=== PATIENT | male | born 1990 ===

== ENCOUNTER 2021-07-29 11:34 | Inpatient (IN) | payer SELFPAY ==
[2021-07-29] MEDS ORDERED: dexAMETHasone 20 MG/5 ML VIAL IV ONE (13:47)
[2021-07-29] MEDS ORDERED: IPRATROPIUM/ALBUTEROL SULFATE 3 ML AMPUL.NEB IH ONE ×2 (13:47→14:14)
--- NOTE | 2021-07-29 14:04 | Emergency Department Report ---
ED Shortness of Breath HPI - General Chief Complaint: Chest Pain Stated Complaint: CHEST PAIN Time Seen by Provider: 07/29/21 13:47 Source: patient Mode of arrival: Ambulatory Limitations: No Limitations - History of Present Illness Initial Comments: 31-year-old male presents to the emergency room complaining of shortness of breath wheezing for the last 4 days. Reports is getting worse. History of asthma. States he has chest pain difficulty breathing and cough. No fever no chills no vaccination for COVID. MD Complaint: shortness of breath, cough, chest pain Onset/Timin -: days(s) Consistency: constant Improves With: nothing Worsens With: coughing Known History Of: asthma Associated Symptoms: chest pain, cough Treatments Prior to Arrival: none - Related Data Allergies Allergy/AdvReac Type Severity Reaction Status Date / Time No Known Allergies Allergy Unverified 07/29/21 11:47 ED Review of Systems ROS: Stated complaint: CHEST PAIN Other details as noted in HPI Comment: All other systems reviewed and negative ED Physical Exam - General Limitations: No Limitations General appearance: alert, in distress - Head Head exam: Present: atraumatic, normocephalic - Eye Eye exam: Present: normal appearance - ENT ENT exam: Present: normal external ear exam - Respiratory Respiratory exam: Present: respiratory distress, wheezes, rhonchi, decreased breath sounds - Cardiovascular Cardiovascular Exam: Present: tachycardia - GI/Abdominal GI/Abdominal exam: Present: soft, normal bowel sounds. Absent: distended, tenderness - Extremities Exam Extremities exam: Present: normal inspection, full ROM - Back Exam Back exam: Present: normal inspection - Neurological Exam Neurological exam: Present: alert, oriented X3, normal gait - Psychiatric Psychiatric exam: Present: normal affect, normal mood - Skin Skin exam: Present: warm, dry, intact, normal color. Absent: rash ED Course Vital Signs 07/29/21 07/29/21 11:47 14:30 Temperature 98.3 F Pulse Rate 102 H Pulse Rate [ 98 H Bilateral Throughout] Respiratory 18 Rate Respiratory 16 Rate [Bilateral Throughout] Blood Pressure 147/93 [Right] O2 Sat by Pulse 98 Oximetry ED Medical Decision Making - Radiology Data Radiology results: report reviewed [facility] [address] [place] [address] XRay Report Signed Patient: LOREN GAINES MR#: [id number] 260 : 1990 Acct:[id number] Age/Sex: 31 / M ADM Date: 07/29/21 Loc: ED Attending Dr: Ordering Physician: ARTHUR SALAZAR Date of Service: 07/29/21 Procedure(s): XR chest 1V ap Accession Number(s): [id number] cc: ARTHUR SALAZAR Fluoro Time In Minutes: CHEST 1 VIEW 07/29/2021 2:09 PM INDICATION / CLINICAL INFORMATION: sob,cough and rales. COMPARISON: None available. FINDINGS: SUPPORT DEVICES: None. HEART / MEDIASTINUM: No significant abnormality. LUNGS / PLEURA: No significant pulmonary or pleural abnormality. No pneumothorax. ADDITIONAL FINDINGS: No significant additional findings. IMPRESSION: 1. No acute findings. Signer Name: Linwood De Paz MD Signed: 07/29/2021 2:29 PM Workstation Name: [id number] Transcribed By: GILMAR Dictated By: Linwood De Paz MD Electronically Authenticated By: Linwood De Paz MD Signed Date/Time: 07/29/211428 DD/ 28 TD/TT: - Medical Decision Making 31-year-old male presents to the emergency room complaining of shortness of breath wheezing for the last 4 days. Reports is getting worse. History of asthma. States he has chest pain difficulty breathing and cough. No fever no chills no vaccination for COVID. Case was discussed with Dr. Winter. Patient had a 5-minute ambulatory pulse ox desatted to 91% on room air heart rate went to 126. Discussed case with Dr. Spear to be admitted. Dr. Spear accepted admission. Please order for CBC CMP and a ABG RA. Patient is to continue with his continuous nebulizer treatment. Chest x-ray was ordered and completed shows no acute cardiopulmonary abnormalities. Critical care attestation.: If time is entered above; I have spent that time in minutes in the direct care of this critically ill patient, excluding procedure time. ED Disposition Clinical Impression: Asthma attack, Status asthmaticus, Hypoxemia Disposition: ADMITTED INPATIENT Is pt being admited?: Yes Does the pt Need Aspirin: No Condition: Stable Instructions: Asthma, Adult, [id number] Referrals: PRIMARY CARE, [Primary Care Provider] - 3-5 Days
[2021-07-29] MEDS ORDERED: ALBUTEROL 2.5 MG/3 ML NEBU IH ONE (14:16)
[2021-07-29] MEDS ORDERED: IPRATROPIUM 0.02% NEBU 2.5 ML IH ONE (14:19)
--- NOTE | 2021-07-29 14:33 | XRay Report ---
CHEST 1 VIEW 07/29/2021 2:09 PM INDICATION / CLINICAL INFORMATION: sob,cough and rales. COMPARISON: None available. FINDINGS: SUPPORT DEVICES: None. HEART / MEDIASTINUM: No significant abnormality. LUNGS / PLEURA: No significant pulmonary or pleural abnormality. No pneumothorax. ADDITIONAL FINDINGS: No significant additional findings. IMPRESSION: 1. No acute findings. Signer Name: Linwood De Paz MD Signed: 07/29/2021 2:29 PM Workstation Name: rumr: turn off the lights
[2021-07-29 18:28] LABS: Hematocrit 48.2 % (35.5-45.6); Hemoglobin 16.2 gm/dl (11.8-15.2); Mean Corpuscular HGB Conc 34 % (32-34); Mean Corpuscular Volume 87 fl (84-94); Platelet Count 280 K/mm3 (140-440); Red Blood Count 5.52 M/mm3 (3.65-5.03); Red Cell Distribution Width 13.3 % (13.2-15.2)
[2021-07-29 18:40] LABS: Alanine Aminotransferase 23 units/L (7-56); Albumin 4.9 g/dL (3.9-5); BUN/Creatinine Ratio 18; Blood Urea Nitrogen 14 mg/dL (9-20); Calcium 9.7 mg/dL (8.4-10.2); Hemolysis Index 15
--- NOTE | 2021-07-29 20:10 | History and Physical Report ---
History of Present Illness Date of examination: 07/29/21 Date of admission: 07/30/2019. Chief complaint: Severe wheezing and shortness of breath since a.m. History of present illness: 35-year-old male comes to the emergency room because of wheezing and shortness of breath for the last 4 days. Not responding to his inhalers. No fever or chills. Cough productive of mucoid sputum. Not a smoker. Initially sats were around 89-90. Improved with oxygenation and nebulizer treatments. Past History Past Medical History: other (Asthma) Past Surgical History: No surgical history Social history: lives with family, full code Family history: no significant family history Medications and Allergies Allergies Allergy/AdvReac Type Severity Reaction Status Date / Time No Known Allergies Allergy Unverified 07/29/21 11:47 Review of Systems All systems: negative Respiratory: congestion, wheezing Exam - Constitutional Vitals: Temp Pulse Resp BP Pulse Ox 98.3 F 98 H 16 140/87 91 07/29/21 11:47 07/29/21 14:30 07/29/21 14:30 07/29/21 18:31 07/29/21 18:31 General appearance: Present: mild distress, well-nourished - EENT Eyes: Present: PERRL ENT: hearing intact, clear oral mucosa - Neck Neck: Present: supple, normal ROM - Respiratory Respiratory effort: normal Respiratory: bilateral: CTA, rhonchi, wheezing - Cardiovascular Heart rate: 78 Rhythm: regular Heart Sounds: Present: S1 & S2. Absent: rub, click - Extremities Extremities: pulses symmetrical, No edema Peripheral Pulses: within normal limits - Abdominal General gastrointestinal: Present: soft, non-tender, non-distended, normal bowel sounds Male genitourinary: Present: normal - Integumentary Integumentary: Present: clear, warm, dry - Musculoskeletal Musculoskeletal: gait normal, strength equal bilaterally - Psychiatric Psychiatric: appropriate mood/affect, intact judgment & insight - Neurologic Neurologic: CNII-XII intact, moves all extremities Results - Labs CBC & Chem 7: 07/29/21 17:48 07/30/21 03:59 Labs: Laboratory Last Values WBC 11.2 K/mm3 (4.5-11.0) H 07/29/21 17:48 RBC 5.52 M/mm3 (3.65-5.03) H 07/29/21 17:48 Hgb 16.2 gm/dl (11.8-15.2) H 07/29/21 17:48 Hct 48.2 % (35.5-45.6) H 07/29/21 17:48 MCV 87 fl (84-94) 07/29/21 17:48 MCH 29 pg (28-32) 07/29/21 17:48 MCHC 34 % (32-34) 07/29/21 17:48 RDW 13.3 % (13.2-15.2) 07/29/21 17:48 Plt Count 280 K/mm3 (140-440) 07/29/21 17:48 Seg Neutrophils % Track Equipment Operator 07/29/21 17:48 Sodium 136 mmol/L (137-145) L 07/29/21 17:48 Potassium 3.4 mmol/L (3.6-5.0) L 07/29/21 17:48 Chloride 97.0 mmol/L (98-107) L 07/29/21 17:48 Carbon Dioxide 26 mmol/L (22-30) 07/29/21 17:48 Anion Gap 16 mmol/L 07/29/21 17:48 BUN 14 mg/dL (9-20) 07/29/21 17:48 Creatinine 0.8 mg/dL (0.8-1.3) 07/29/21 17:48 Estimated GFR > 60 ml/min 07/29/21 17:48 BUN/Creatinine Ratio 18 % 07/29/21 17:48 Glucose 143 mg/dL (75-100) H 07/29/21 17:48 Calcium 9.7 mg/dL (8.4-10.2) 07/29/21 17:48 Total Bilirubin 1.30 mg/dL (0.1-1.2) H 07/29/21 17:48 AST 28 units/L (5-40) 07/29/21 17:48 ALT 23 units/L (7-56) 07/29/21 17:48 Alkaline Phosphatase 82 units/L (35-129) 07/29/21 17:48 Total Protein 7.6 g/dL (6.3-8.2) 07/29/21 17:48 Albumin 4.9 g/dL (3.9-5) 05/06/22 17:48 Albumin/Globulin Ratio 1.8 % 07/29/21 17:48 - Imaging and Cardiology Chest x-ray: report reviewed (No acute findings) Assessment and Plan Advance Directives: Yes (Full code) VTE prophylaxis?: Chemical Plan of care discussed with patient/family: Yes - Patient Problems (1) Acute respiratory failure with hypoxia Current Visit: Yes Status: Acute Plan to address problem: Borderline hypoxia Improved with oxygen oxygen Bronchodilators, nebulizer treatments, IV Levaquin and IV steroids (2) Asthma exacerbation Current Visit: Yes Status: Acute Qualifiers: Asthma severity: severe Plan to address problem: IV antibiotics in the form of Levaquin, IV Solu-Medrol and nebulizer treatments [id number] and every 3 as needed Patient started on Singulair (3) Hypokalemia Current Visit: Yes Status: Acute Plan to address problem: Supplemented. (4) DVT prophylaxis Current Visit: Yes Status: Acute Plan to address problem: On heparin and GI prophylaxis (5) Advance care planning Current Visit: Yes Status: Acute Plan to address problem: Disease education conducted, care plan discussed, diagnosis discussed, prognosis rest. Patient is full code. Patient acknowledges understanding and agreement with care plan. +30 minutes.
[2021-07-29] MEDS ORDERED: ONDANSETRON 4 MG/2 ML INJ IV PRN (20:11)
[2021-07-29] MEDS ORDERED: METOCLOPRAMIDE 10 MG/2 ML INJ IV PRN (20:11)
[2021-07-29] MEDS ORDERED: ACETAMINOPHEN 325 MG TAB PO PRN (20:11)
[2021-07-29] MEDS ORDERED: oxyCODONE /ACETAMINOPHEN 5-325MG TAB PO PRN (20:11)
[2021-07-29] MEDS ORDERED: MORPHINE 2 MG/1 ML INJ IV PRN (20:11)
[2021-07-29] MEDS ORDERED: IPRATROPIUM/ALBUTEROL SULFATE 3 ML AMPUL.NEB IH PRN (20:23)
[2021-07-29] MEDS ORDERED: SODIUM CHLORIDE 0.9% 1000 ML 1,000 ML IV SCH (20:30)
[2021-07-29] MEDS ORDERED: ALBUTEROL 2.5 MG/3 ML NEBU IH PRN (20:45)
[2021-07-29 21:46] LABS: Anisocytosis 1+; Eosinophils % (Manual) 0 % (0.0-4.3); Platelet Estimate Consistent w Auto; Total Cells Counted 100
[2021-07-30] MEDS: methylPREDNISolone Sod Succinate 125 MG/2 ML INJ IV SCH ×3 (00:13→17:29)
[2021-07-30] MEDS: HEPARIN 5,000 UNIT/1 ML VIAL SUB-Q SCH ×3 (00:14→22:05)
[2021-07-30] MEDS ORDERED: guaiFENesin 100 MG/5 ML ORAL LIQD PO PRN (04:29)
[2021-07-30 05:05] LABS: Blood Urea Nitrogen 17 mg/dL (9-20); Calcium 9.8 mg/dL (8.4-10.2); Hemolysis Index 12
[2021-07-30 05:23] LABS: BUN/Creatinine Ratio 24
[2021-07-30] MEDS: MONTELUKAST 10 MG TAB PO SCH ×2 (07:13→22:05)
--- NOTE | 2021-07-30 09:44 | Electrocardiograph Report ---
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
[2021-07-30] MEDS: IPRATROPIUM/ALBUTEROL SULFATE 3 ML AMPUL.NEB IH SCH ×4 (12:26→21:50)
[2021-07-30 13:25] LABS: ABG Base Excess -1.9 mmol/L (-2.0-3.0); ABG HCO3 21.9 mmol/L (20.0-26.0); ABG Methemoglobin 0.5 % (0.0-1.5); ABG Oxygen Saturation 92.1 % (95.0-99.0); ABG PCO2 34.9 mm Hg; ABG PH 7.414 pH Units (7.350-7.450)
--- NOTE | 2021-07-30 14:28 | Progress Note ---
Assessment and Plan Assessment and plan: #Acute hypoxic respiratory failureimproved #Possible upper respiratory infection - etiology: Possible upper respiratory infection - baseline oxygen requirements: Room air - supplemental oxygen: 1 L nasal cannula Coronavirus PCR unremarkable. Continue with p.o. Levaquin 700 mg daily and DuoNebs and Singulair. Decrease IV steroid to 40 mg twice daily. - Continue protocol: continue pulse oximetry, wean oxygen as tolerated, ordered incentive spirometry and educated patient on how to use it and its importance. - continue to monitor #Asthma exacerbationruled out Patient denies history of asthma #Hypokalemiaresolved Potassium 4.2. Continue to monitor. #Obesity #Weight loss counseling #Exercise counseling - BMI 33.1 - Counseled patient on the importance of weight loss, incorporating exercise, and dietary changes (lean meats, fresh fruits and vegetables, and water intake). Patient expresses understanding. - Time: +15 min #Advanced care planning -Disease education conducted, care plan discussed, diagnoses discussed, prognosis discussed, and patient acknowledges understanding with care plan -Time: +30 min #Discharge planning - Patient is pending resolution of hypoxic respiratory failure. - Case management has been made aware. - Discharge is tentatively tomorrow. Disposition Plan: Continue medical management Total Time Spent with Patient (Minutes): 45 minutes History Interval history: No acute events overnight. Hospitalist Physical - Constitutional Vitals: Temp Pulse Resp BP Pulse Ox 97.6 F 115 H 20 151/84 91 07/30/21 12:19 07/30/21 12:39 07/30/21 12:39 07/30/21 12:19 07/30/21 12:19 General appearance: Present: no acute distress, well-nourished, obese - EENT Eyes: Present: PERRL, EOM intact ENT: hearing intact, clear oral mucosa, dentition normal - Neck Neck: Present: supple, normal ROM - Respiratory Respiratory effort: normal Respiratory: bilateral: wheezing - Cardiovascular Rhythm: regular Heart Sounds: Present: S1 & S2 - Extremities Extremities: no ischemia, pulses intact, pulses symmetrical, No edema, normal temperature, normal color, Full ROM Peripheral Pulses: within normal limits - Abdominal General gastrointestinal: soft, non-tender, non-distended, normal bowel sounds - Integumentary Integumentary: Present: clear, warm, dry - Psychiatric Psychiatric: appropriate mood/affect, intact judgment & insight, memory intact, cooperative - Neurologic Neurologic: CNII-XII intact, moves all extremities - Allied Health Allied health notes reviewed: nursing Results - Labs CBC & Chem 7: 07/29/21 17:48 07/30/21 03:59 Labs: Laboratory Last Values WBC 11.2 K/mm3 (4.5-11.0) H 07/29/21 17:48 RBC 5.52 M/mm3 (3.65-5.03) H 07/29/21 17:48 Hgb 16.2 gm/dl (11.8-15.2) H 07/29/21 17:48 Hct 48.2 % (35.5-45.6) H 07/29/21 17:48 MCV 87 fl (84-94) 07/29/21 17:48 MCH 29 pg (28-32) 07/29/21 17:48 MCHC 34 % (32-34) 07/29/21 17:48 RDW 13.3 % (13.2-15.2) 07/29/21 17:48 Plt Count 280 K/mm3 (140-440) 07/29/21 17:48 Add Manual Diff Complete 07/29/21 17:48 Total Counted 100 07/29/21 17:48 Seg Neutrophils % Padder 07/29/21 17:48 Seg Neuts % (Manual) 90.0 % (40.0-70.0) H 07/29/21 17:48 Band Neutrophils % 0 % 07/29/21 17:48 Lymphocytes % (Manual) 8.0 % (13.4-35.0) L 07/29/21 17:48 Reactive Lymphs % (Man) 0 % 07/29/21 17:48 Monocytes % (Manual) 1.0 % (0.0-7.3) 07/29/21 17:48 Eosinophils % (Manual) 0 % (0.0-4.3) 07/29/21 17:48 Basophils % (Manual) 1.0 % (0.0-1.8) 07/29/21 17:48 Metamyelocytes % 0 % 07/29/21 17:48 Myelocytes % 0 % 07/29/21 17:48 Promyelocytes % 0 % 07/29/21 17:48 Blast Cells % 0 % 07/29/21 17:48 Nucleated RBC % Not Reportable 07/29/21 17:48 Seg Neutrophils # Man 10.1 K/mm3 (1.8-7.7) H 07/29/21 17:48 Band Neutrophils # 0.0 K/mm3 07/29/21 17:48 Lymphocytes # (Manual) 0.9 K/mm3 (1.2-5.4) L 07/29/21 17:48 Abs React Lymphs (Man) 0.0 K/mm3 07/29/21 17:48 Monocytes # (Manual) 0.1 K/mm3 (0.0-0.8) 07/29/21 17:48 Eosinophils # (Manual) 0.0 K/mm3 (0.0-0.4) 07/29/21 17:48 Basophils # (Manual) 0.1 K/mm3 (0.0-0.1) 07/29/21 17:48 Metamyelocytes # 0.0 K/mm3 07/29/21 17:48 Myelocytes # 0.0 K/mm3 07/29/21 17:48 Promyelocytes # 0.0 K/mm3 07/29/21 17:48 Blast Cells # 0.0 K/mm3 07/29/21 17:48 WBC Morphology Not Reportable 07/29/21 17:48 Hypersegmented Neuts Not Reportable 07/29/21 17:48 Hyposegmented Neuts Not Reportable 07/29/21 17:48 Hypogranular Neuts Not Reportable 07/29/21 17:48 Smudge Cells Not Reportable 07/29/21 17:48 Toxic Granulation Not Reportable 07/29/21 17:48 Toxic Vacuolation Not Reportable 07/29/21 17:48 Dohle Bodies Not Reportable 07/29/21 17:48 Pelger-Huet Anomaly Not Reportable 07/29/21 17:48 Afshan Rods Not Reportable 07/29/21 17:48 Platelet Estimate Consistent w auto 07/29/21 17:48 Clumped Platelets Not Reportable 07/29/21 17:48 Plt Clumps, EDTA Not Reportable 07/29/21 17:48 Large Platelets Not Reportable 07/29/21 17:48 Giant Platelets Not Reportable 07/29/21 17:48 Platelet Satelliting Not Reportable 07/29/21 17:48 Plt Morphology Comment Not Reportable 07/29/21 17:48 RBC Morphology Not Reportable 07/29/21 17:48 Dimorphic RBCs Not Reportable 07/29/21 17:48 Polychromasia Not Reportable 07/29/21 17:48 Hypochromasia Not Reportable 07/29/21 17:48 Poikilocytosis Not Reportable 07/29/21 17:48 Anisocytosis 1+ 07/29/21 17:48 Microcytosis Not Reportable 07/29/21 17:48 Macrocytosis Not Reportable 07/29/21 17:48 Spherocytes Not Reportable 07/29/21 17:48 Pappenheimer Bodies Not Reportable 07/29/21 17:48 Sickle Cells Not Reportable 07/29/21 17:48 Target Cells Not Reportable 07/29/21 17:48 Tear Drop Cells Not Reportable 07/29/21 17:48 Ovalocytes Not Reportable 07/29/21 17:48 Helmet Cells Not Reportable 07/29/21 17:48 Mohan-Coy Bodies Not Reportable 07/29/21 17:48 [place] Rings Not Reportable 07/29/21 17:48 Qian Cells Not Reportable 07/29/21 17:48 Bite Cells Not Reportable 07/29/21 17:48 Crenated Cell Not Reportable 07/29/21 17:48 Elliptocytes Not Reportable 07/29/21 17:48 Acanthocytes (Spur) Not Reportable 07/29/21 17:48 Rouleaux Not Reportable 07/29/21 17:48 Hemoglobin C Crystals Not Reportable 07/29/21 17:48 Schistocytes Not Reportable 07/29/21 17:48 Malaria parasites Not Reportable 07/29/21 17:48 Yariel Bodies Not Reportable 07/29/21 17:48 Hem Pathologist Commnt No 07/29/21 17:48 ABG pH 7.414 pH Units (7.350-7.450) 07/30/21 13:00 ABG pCO2 34.9 mm Hg 07/30/21 13:00 ABG pO2 56.0 mm Hg (80.0-90.0) L 07/30/21 13:00 ABG HCO3 21.9 mmol/L (20.0-26.0) 07/30/21 13:00 ABG O2 Saturation 92.1 % (95.0-99.0) L 07/30/21 13:00 ABG O2 Content 20.0 (0.0-44) 07/30/21 13:00 ABG Base Excess -1.9 mmol/L (-2.0-3.0) 07/30/21 13:00 ABG Hemoglobin 15.7 gm/dl (14.0-18.0) 07/30/21 13:00 ABG Carboxyhemoglobin 1.2 % (0.0-5.0) 07/30/21 13:00 ABG Methemoglobin 0.5 % (0.0-1.5) 07/30/21 13:00 Oxyhemoglobin 90.6 % (95.0-99.0) L 07/30/21 13:00 FiO2 21 % 07/30/21 13:00 Sodium 137 mmol/L (137-145) 07/30/21 03:59 Potassium 4.2 mmol/L (3.6-5.0) D 07/30/21 03:59 Chloride 99.1 mmol/L (98-107) 07/30/21 03:59 Carbon Dioxide 20 mmol/L (22-30) L 07/30/21 03:59 Anion Gap 22 mmol/L 07/30/21 03:59 BUN 17 mg/dL (9-20) 07/30/21 03:59 Creatinine 0.7 mg/dL (0.8-1.3) L 07/30/21 03:59 Estimated GFR > 60 ml/min 07/30/21 03:59 BUN/Creatinine Ratio 24 % 07/30/21 03:59 Glucose 155 mg/dL (75-100) H 07/30/21 03:59 Calcium 9.8 mg/dL (8.4-10.2) 07/30/21 03:59 Total Bilirubin 1.30 mg/dL (0.1-1.2) H 07/29/21 17:48 AST 28 units/L (5-40) 07/29/21 17:48 ALT 23 units/L (7-56) 07/29/21 17:48 Alkaline Phosphatase 82 units/L (35-129) 07/29/21 17:48 Total Protein 7.6 g/dL (6.3-8.2) 07/29/21 17:48 Albumin 4.9 g/dL (3.9-5) 07/29/21 17:48 Albumin/Globulin Ratio 1.8 % 07/29/21 17:48 Coronavirus (PCR) Negative (Negative) 07/30/21 10:38 [place]/IV: Voiding Method Toilet Active Medications - Current Medications Current Medications: Generic Name Dose Route Start Last Admin Trade Name Freq PRN Reason Stop Dose Admin Acetaminophen 650 mg 07/29/21 20:11 Acetaminophen 325 Mg Tab PO Q4H PRN Pain MILD(1-3)/Fever >100.5/MCBRIDE Albuterol 2.5 mg 07/29/21 20:45 Albuterol 2.5 Mg/3 Ml Nebu IH Q4HRT PRN Shortness Of Breath Albuterol/Ipratropium 1 ampul 07/30/21 08:00 07/30/21 12:39 Ipratropium/Albuterol Sulfate 3 Ml Ampul.Neb IH 1 ampul QIDRT [facility] Administration Guaifenesin 200 mg 07/30/21 04:29 07/30/21 06:24 Guaifenesin 100 Mg/5 Ml Oral Liqd PO 200 mg Q6H PRN Administration Cough Heparin Sodium (Porcine) 5,000 unit 07/29/21 22:00 07/30/21 09:55 Heparin 5,000 Unit/1 Ml Vial SUB-Q 5,000 unit Q12HR [facility] Administration Levofloxacin 750 mg 07/30/21 22:00 Levofloxacin 750 Mg Tab PO 08/01/21 10:01 Q24HR [facility] Protocol Methylprednisolone Sodium Succinate 60 mg 07/30/21 17:00 Methylprednisolone Sod Succinate 125 Mg/2 Ml Inj IV Q12H [facility] Metoclopramide HCl 10 mg 07/29/21 20:11 Metoclopramide 10 Mg/2 Ml Inj IV Q6H PRN Nausea And Vomiting Montelukast Sodium 10 mg 07/29/21 22:00 07/30/21 07:13 Montelukast 10 Mg Tab PO Not Given QHS [facility] Morphine Sulfate 2 mg 07/29/21 20:11 Morphine 2 Mg/1 Ml Inj IV Q4H PRN Pain, Moderate (4-6) Ondansetron HCl 4 mg 07/29/21 20:11 Ondansetron 4 Mg/2 Ml Inj IV Q3H PRN Nausea And Vomiting Oxycodone/Acetaminophen 1 tab 07/29/21 20:11 Oxycodone /Acetaminophen 5-325mg Tab PO Q6H PRN Pain, Moderate (4-6) Sodium Chloride 10 ml 07/29/21 22:00 07/30/21 09:55 Sodium Chloride 0.9% 10 Ml Flush Syringe IV 10 ml BID BUCK Administration Sodium Chloride 10 ml 07/29/21 20:11 Sodium Chloride 0.9% 10 Ml Flush Syringe IV PRN PRN LINE FLUSH
[2021-07-30] MEDS: levoFLOXacin 750 MG TAB PO SCH (22:05)
[2021-07-31] MEDS: methylPREDNISolone Sod Succinate 125 MG/2 ML INJ IV SCH (05:22)
[2021-07-31 05:52] LABS: Basophils % (Auto) 0.1 % (0.0-1.8); Hematocrit 45.3 % (35.5-45.6); Hemoglobin 14.9 gm/dl (11.8-15.2); Lymphocytes # (Auto) 1.7 K/mm3 (1.2-5.4); Lymphocytes % (Auto) 8.6 % (13.4-35.0); Mean Corpuscular HGB Conc 33 % (32-34); Mean Corpuscular Volume 88 fl (84-94); Monocytes # (Auto) 1.3 K/mm3 (0.0-0.8); Monocytes % (Auto) 6.5 % (0.0-7.3); Platelet Count 286 K/mm3 (140-440); Red Blood Count 5.15 M/mm3 (3.65-5.03); Red Cell Distribution Width 13.3 % (13.2-15.2)
[2021-07-31 06:04] LABS: Blood Urea Nitrogen 20 mg/dL (9-20); Calcium 9.3 mg/dL (8.4-10.2); Hemolysis Index 3
[2021-07-31 06:06] LABS: BUN/Creatinine Ratio 29
[2021-07-31] MEDS: IPRATROPIUM/ALBUTEROL SULFATE 3 ML AMPUL.NEB IH SCH ×2 (09:43→13:21)
[2021-07-31] MEDS: HEPARIN 5,000 UNIT/1 ML VIAL SUB-Q SCH (09:47)
[2021-07-31] MEDS: levoFLOXacin 750 MG TAB PO SCH (09:47)
--- NOTE | 2021-07-31 11:01 | Discharge Summary ---
Providers - Providers Date of Admission: 07/29/21 20:11 Date of discharge: 07/31/21 Attending physician: FAVIO JOVEL MD Primary care physician: [employer] Hospitalization Reason for admission: Acute hypoxic respiratory failure Condition: Stable Pertinent studies: Reviewed. Procedures: None. Hospital course: Patient is a 35-year-old male with no significant past medical history who presented to the emergency department with wheezing and shortness of breath for the previous 4 days. Patient was not responding to his inhalers; however, the patient denies a history of asthma. Patient described having productive sputum but denied fevers or chills. Patient is not a smoker. On presentation the patient was tachycardic and tachypneic. The patient required supplemental oxygen, and was started on increased IV steroids in addition to Levaquin. Patient has since been weaned off of supplemental oxygen, has remained afebrile, and has remained hemodynamically stable. The patient's WBC increased significantly from 11-19; however, this is likely secondary to marginalization in the setting of high-dose IV steroids. With the patient remaining hemodynamically stable, the patient will be discharged home with a continued antibiotic course and steroids to be completed in outpatient setting. The patient will be referred to a primary care provider. Patient expresses understanding. Patient is medically clear for discharge. Disposition: 01 HOME / SELF CARE / HOMELESS Final Discharge Diagnosis (Prints w/discharge instructions): Acute hypoxic respiratory failure, upper respiratory infection, hypokalemia, obesity. Time spent for discharge: 45 min Core Measure Documentation - Palliative Care Palliative Care/ Comfort Measures: Not Applicable - Core Measures Any of the following diagnoses?: none Exam - Constitutional Vitals: Temp Pulse Resp BP Pulse Ox 98.0 F 74 17 129/73 98 07/31/21 07:38 07/31/21 07:38 07/31/21 10:00 07/31/21 07:38 07/31/21 10:00 General appearance: Present: no acute distress, well-nourished, obese - EENT Eyes: Present: PERRL, EOM intact ENT: hearing intact, clear oral mucosa, dentition normal - Neck Neck: Present: supple, normal ROM - Respiratory Respiratory effort: normal Respiratory: bilateral: CTA, wheezing - Cardiovascular Rhythm: regular Heart Sounds: Present: S1 & S2 - Extremities Extremities: no ischemia, pulses intact, pulses symmetrical, No edema, normal temperature, normal color, Full ROM Peripheral Pulses: within normal limits - Abdominal General gastrointestinal: Present: soft, non-tender, non-distended, normal bowel sounds Male genitourinary: Present: deferred - Rectal Rectal Exam: deferred - Integumentary Integumentary: Present: clear, warm, dry - Musculoskeletal Musculoskeletal: strength equal bilaterally - Psychiatric Psychiatric: appropriate mood/affect, intact judgment & insight, memory intact, cooperative - Neurologic Neurologic: CNII-XII intact, moves all extremities - Allied Health Allied health notes reviewed: nursing Plan Activity: advance as tolerated Diet: regular Additional Instructions: Patient is a 35-year-old male with no significant past medical history who presented to the emergency department with wheezing and shortness of breath for the previous 4 days. Patient was not responding to his inhalers; however, the patient denies a history of asthma. Patient described having productive sputum but denied fevers or chills. Patient is not a smoker. On presentation the patient was tachycardic and tachypneic. The patient required supplemental oxygen, and was started on increased IV steroids in addition to Levaquin. Patient has since been weaned off of supplemental oxygen, has remained afebrile, and has remained hemodynamically stable. The patient's WBC increased significantly from 11-19; however, this is likely secondary to marginalization in the setting of high-dose IV steroids. With the patient remaining hemodynamically stable, the patient will be discharged home with a continued antibiotic course and steroids to be completed in outpatient setting. The patient will be referred to a primary care provider. Patient expresses understanding. Patient is medically clear for discharge. Care Plan Goals: Patient is medically cleared for discharge. Assessment: Patient is a 35-year-old male with no significant past medical history who presented to the emergency department with wheezing and shortness of breath for the previous 4 days. Patient was not responding to his inhalers; however, the patient denies a history of asthma. Patient described having productive sputum but denied fevers or chills. Patient is not a smoker. On presentation the patient was tachycardic and tachypneic. The patient required supplemental oxygen, and was started on increased IV steroids in addition to Levaquin. Patient has since been weaned off of supplemental oxygen, has remained afebrile, and has remained hemodynamically stable. The patient's WBC increased significantly from 11-19; however, this is likely secondary to marginalization in the setting of high-dose IV steroids. With the patient remaining hemodynamically stable, the patient will be discharged home with a continued antibiotic course and steroids to be completed in outpatient setting. The patient will be referred to a primary care provider. Patient expresses understanding. Patient is medically clear for discharge. Follow up with: DAVID GIRON MD [Primary Care Provider] - 3-5 Days GRACIE ADAME MD [Staff Physician] - 10 Days Prescriptions: methylPREDNISolone [Medrol] 8 mg PO QHS #5 tablet levoFLOXacin [Levaquin TAB] 750 mg PO Q24HR #5 tablet
[2021-07-31 12:07] VITALS: BP 148/73
[2021-07-31] MEDS ORDERED: methylPREDNISolone 4 MG TAB PO SCH (22:00)
== END 2021-07-31 14:52 | disposition home or self-care (01) | DRG 189 ==
LOC: ED 11:34 → 3A 20:11 → 4A 07-30 00:30
PROVIDERS: ADMIT Internal Medicine; ATTEND Student in an Organized Health Care Education/Training Program
PROC: 4A033R1 Measurement of Arterial Saturation, Peripheral, Percutaneous Approach (ICD-10-PCS; principal; 2021-07-30)
DX: J96.01 Acute respiratory failure with hypoxia (principal); Z20.822 Contact with and (suspected) exposure to COVID-19; E87.6 Hypokalemia; E66.9 Obesity, unspecified; Z71.3 Dietary counseling and surveillance; Z68.33 Body mass index [BMI] 33.0-33.9, adult; Z79.899 Other long term (current) drug therapy
CPT/HCPCS: 36415; 36600; 71045; 80048; 80053; 82803; 85025; 93005; 94640; 94644; 96365; 96375; 99285; G0378; J1100; J1644; J1956; J2930; J7030; U0003